=== PATIENT | female | born 1995 | race Caucasian/White ===

== ENCOUNTER 2017-03-25 15:45 | Emergency (ER) | payer OTHER ==
[~2017-03-25] VITALS: Wt 50.0 kg
[2017-03-25] MEDS ORDERED: KETOROLAC 15 MG INJ IV STA (15:54)
[2017-03-25] MEDS ORDERED: SOD CHLORIDE 0.9% 1,000 ML IV STA (15:54)
[2017-03-25] MEDS ORDERED: NEOMYC/POLYMYX/BACIT 30 GM OINT TOP ONE (16:00)
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
[2017-03-25] MEDS ORDERED: IBUP-1542 PO (16:46)
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
== END 2017-03-25 17:48 | disposition home or self-care (01) ==
LOC: E/R 15:45
DX: S80.01XA Contusion of right knee, initial encounter (principal); R42 Dizziness and giddiness; V18.4XXA Pedal cycle driver injured in noncollision transport accident in traffic accident, initial encounter
CPT/HCPCS: 70450; 70486; 96374; 99285; J1885; J7030